=== PATIENT | male | born 1965 | race Caucasian/White ===

== ENCOUNTER 2016-04-11 19:22 | Emergency (ER) | payer BC ==
[2016-04-11 19:59] VITALS: BP 118/85; PULSE 103; RESP 16; TEMP 99; O2SAT 95
--- NOTE | 2016-04-11 20:10 | UCPHY ---
H & P Patient Type: New Chief Complaint Nursing Narrative: chills ba flu like s/s body aches x 6 hours. Flu vacc UTD Time Seen by Provider: 04/11/16 20:01 HPI/ROS: Chief complaint: Fevers, chills, body aches, fatigue. HPI: 50-year-old male with no past medical history presenting with 1 day of some fevers and chills, body aches, general malaise. No cough or shortness of breath. Some mild nausea no vomiting. No diarrhea. No chest pain or shortness of breath. No abdominal pain. Has not taken any medications. Does not smoke. Does not have a history of lung disease. Has been traveling last couple weeks but not out of the country. ROS: 10 point Review of Systems is negative except as noted in the HPI. Past medical history: None Medications: None Allergies: No known drug allergies Physical exam: Gen: Awake, Alert, No Distress HEENT: Nose: no rhinorrhea Eyes: PERRLA, EOMI Mouth: Moist mucosa Neck: Supple, no JVD Chest: nontender, lungs clear to auscultation Heart: S1, S2 normal, no murmur Abd: Soft, non-tender, no guarding Back: no CVA tenderness, no midline tenderness Ext: no edema, non-tender Skin: no rash Neuro: CN II-XII intact, Sensation grossly intact, Strength 5/5 in bilateral upper and lower extremities - Medical/Surgical History Other PMH: PCP [facility] [place]. surgery Jaw. Flu Vacc utd - Family History Significant Family History: No pertinent family hx - Social History Smoking Status: Never smoked Constitutional: Initial Vital Signs Temperature (C) 37.2 C 04/11/16 19:50 Heart Rate 103 H 04/11/16 19:50 Respiratory Rate 16 04/11/16 19:50 Blood Pressure 118/85 H 04/11/16 19:50 O2 Sat (%) 95 04/11/16 19:50 O2 Delivery Mode Room Air Allergies/Adverse Reactions: No Known Allergies Allergy (Unverified 03/23/12 09:51) Home Medications: Medication Instructions Recorded Oseltamivir Phosphate [Tamiflu 75 75 mg PO BID #10 cap 03/23/12 mg (RX)] Vitamins Otc 03/23/12 Medical Decision Making ED Course/Re-evaluation: 50-year-old male with flu-like symptoms. No focal signs of infection at this time. I have given him precautions for caring for viral illness. Will follow up with primary care physician in several days if symptoms are not improving. Departure - Departure Disposition: Home, Routine, Self-Care Clinical Impression: Viral infection Condition: Good Instructions: Viral Syndrome (ED) Additional Instructions: He may alternate ibuprofen and acetaminophen every 3-4 hours for fevers, chills , aches, and pains. Follo up with the primary care physician in 3-4 days if symptoms are not improving. Return to the Urgent Care or the emergency depart for increasing chest pain, shortness of breath uncontrolled fevers, chills, nausea, vomiting, or any other concerns. - PQRS PQRS Measurement: NA
== END 2016-04-11 20:25 | disposition home or self-care (01) ==
LOC: CED 19:22
DX: B34.9 Viral infection, unspecified (principal)
CPT/HCPCS: G0463-PO